=== PATIENT | female | born 1980 | race Caucasian/White ===

== ENCOUNTER 2020-06-22 01:28 | Emergency (ER) | payer MEDICARE ==
[~2020-06-22] VITALS: Ht 160 cm; Wt 93.8 kg
[2020-06-22] MEDS ORDERED: KETO10TAB PO (01:43)
[2020-06-22] MEDS ORDERED: OMEP1CAP73 PO (01:43)
[2020-06-22] MEDS ORDERED: DEPA1TAB3 PO (01:43)
[2020-06-22] MEDS ORDERED: EFFE150C2 PO (01:43)
[2020-06-22] MEDS ORDERED: [UNRECOGNIZED DRUG - CODE] IM (01:43)
[2020-06-22] MEDS ORDERED: KETOROLAC 60MG 2ML VIAL IM ONE (05:30)
[2020-06-22 06:27] VITALS: BP 135/84
== END 2020-06-22 06:53 | disposition home or self-care (01) ==
LOC: M ED 01:28
DX: S46.212A Strain of muscle, fascia and tendon of other parts of biceps, left arm, initial encounter (principal); X58.XXXA Exposure to other specified factors, initial encounter; Y92.89 Other specified places as the place of occurrence of the external cause; F31.9 Bipolar disorder, unspecified; F64.9 Gender identity disorder, unspecified; Z79.899 Other long term (current) drug therapy; Z88.1 Allergy status to other antibiotic agents; Z88.2 Allergy status to sulfonamides; F17.210 Nicotine dependence, cigarettes, uncomplicated
CPT/HCPCS: 96372; 99284; J1885

== ENCOUNTER 2020-06-27 19:28 | Emergency (ER) | payer MEDICARE ==
[~2020-06-27] VITALS: Ht 160 cm; Wt 92.6 kg
[~2020-06-27 19:28] MED LIST: DEPA1TAB3 PO; EFFE150C2 PO; KETO10TAB PO; OMEP1CAP73 PO; [UNRECOGNIZED DRUG - CODE] IM
[2020-06-27] MEDS ORDERED: PANTOPRAZOLE 40MG VIAL (C9113 PER 1) IV ONE (20:15)
[2020-06-27] MEDS ORDERED: NS 1,000 ML IV ONE (20:15)
[2020-06-27] MEDS ORDERED: DICYCLOMINE 10 MG CAP PO ONE (20:15)
[2020-06-27] MEDS ORDERED: ONDANSETRON 4MG/2ML VIAL IV ONE (20:15)
[2020-06-27 20:34] LABS: BASO % 0.4 % (0.0-1.0); EOS # 0.2 10^3/uL (0.0-0.5); EOS % 2.5 % (0.0-3.0); HEMATOCRIT 47.9 % (36.0-47.0); HEMOGLOBIN 16.5 g/dl (12.0-15.5); LYMPH # 2.6 10^3/uL (1.5-5.0); LYMPH % 32.1 % (24.0-44.0); MEAN CORPUSCULAR HEMOGLOBIN 32.7 pg (27.0-33.0); MEAN CORPUSCULAR HGB CONC 34.4 g/dl (32.0-36.5); MONO # 0.8 10^3/uL (0.0-0.8); NEUTROPHILS # 4.5 10^3/uL (1.5-8.5); NEUTROPHILS % 54.8 % (36.0-66.0); PLATELET COUNT, AUTOMATED 290 10^3/uL (150-450); RED BLOOD COUNT 5.04 10^6/uL (4.00-5.40); WHITE BLOOD COUNT 8.1 10^3/uL (4.0-10.0)
[2020-06-27 20:45] LABS: INR 0.95; PROTHROMBIN TIME 12.8 SECONDS (11.8-14.0)
[2020-06-27 20:46] LABS: PARTIAL THROMBOPLASTIN TIME 26.3 SECONDS (25.0-38.4)
[2020-06-27 21:21] LABS: ALBUMIN 3.8 GM/DL (3.2-5.2); ALT/SGPT 37 U/L (12-78); BILIRUBIN,DIRECT 0.2 MG/DL (0.0-0.2); BILIRUBIN,TOTAL 0.6 MG/DL (0.2-1.0); CK-MB VALUE MASS < 1.0 NG/ML (<3.6); CPK CREATINE PHOSPHOKINASE 100 U/L (26-192); LIPASE 287 U/L (73-393); TOTAL PROTEIN 7.5 GM/DL (6.4-8.2); TROPONIN I < 0.02 NG/ML (< 0.10)
[2020-06-27] MEDS ORDERED: ISOVUE-370 76% 100ML VIAL As Ordered ONE (21:35)
--- NOTE | 2020-06-27 22:27 | REPVR ---
PROCEDURE INFORMATION: Exam: CT Abdomen And Pelvis With Contrast Exam date and time: 06/27/2020 9:45 PM Age: 39 years old Clinical indication: Abdominal pain; Generalized; Additional info: Abd pain/blood in stool TECHNIQUE: Imaging protocol: Computed tomography of the abdomen and pelvis with intravenous contrast. Radiation optimization: All CT scans at this facility use at least one of these dose optimization techniques: automated exposure control; mA and/or kV adjustment per patient size (includes targeted exams where dose is matched to clinical indication); or iterative reconstruction. Contrast material: ISOVUE 370; Contrast volume: 100 ml; Contrast route: INTRAVENOUS (IV); COMPARISON: No relevant prior studies available. FINDINGS: Lungs: The lung bases are unremarkable. Liver: There is a diffuse decrease in hepatic parenchymal density, consistent with fatty infiltration. Gallbladder and bile ducts: The gallbladder is unremarkable. The gallbladder is unremarkable. Pancreas: The pancreas is normal. Spleen: The spleen is normal. Adrenals: The adrenal glands are unremarkable. Kidneys and ureters: The kidneys are unremarkable. Stomach and bowel: There is no evidence of intestinal obstruction or inflammation. Appendix: The appendix is unremarkable. Intraperitoneal space: Unremarkable. No free air. No significant fluid collection. Vasculature: There is no evidence of an infrarenal abdominal aortic aneurysm. The SMA, celiac axis and inferior mesenteric arteries are all patent. Lymph nodes: Subcentimeter periaortic pericaval and mesenteric lymph nodes are apparent. Bladder: The bladder is unremarkable. Reproductive: Unremarkable as visualized. Bones/joints: Unremarkable. No acute fracture. Soft tissues: There is a fat-containing umbilical hernia. IMPRESSION: No acute findings in the abdomen or pelvis. Electronically signed by: Ivory Stinson On 06/27/2020 22:26:58 PM
[2020-06-27] MEDS ORDERED: OMEP40CA97 PO (23:06)
[2020-06-27] MEDS ORDERED: DICY10CA13 PO (23:06)
[2020-06-27 23:19] VITALS: BP 135/89
== END 2020-06-27 23:20 | disposition home or self-care (01) ==
LOC: M ED 19:28
DX: K92.2 Gastrointestinal hemorrhage, unspecified (principal); E66.9 Obesity, unspecified; F33.9 Major depressive disorder, recurrent, unspecified; F41.9 Anxiety disorder, unspecified; F64.9 Gender identity disorder, unspecified; Z79.899 Other long term (current) drug therapy; Z88.1 Allergy status to other antibiotic agents; Z88.2 Allergy status to sulfonamides; F12.20 Cannabis dependence, uncomplicated; F17.210 Nicotine dependence, cigarettes, uncomplicated
CPT/HCPCS: 36415; 74177; 80047; 80076; 81001; 82550; 82553; 83690; 84484; 85025; 85610; 85730; 86850; 86900; 86901; 87086; 96361; 96374; 96375; 99284; C9113; J2405; Q9967